=== PATIENT | male | born 1950 | race Caucasian/White ===

== ENCOUNTER 2021-02-24 11:01 | Outpatient (CLI) | payer OTHER, SELFPAY ==
--- NOTE | 2021-02-24 11:13 | USCV_ITS ---
Artem Figueroa Age: 70 Gender: M : 1950 Exam Date: 02/24/2021 11:24 Ordering Phys: Piyush Dotson DO Technologist: Susan Pichardo [place] [facility] [place]: NOISE OVER LEFT CAROTID Risk Factors: Previous Vascular Surgery: Right Brachial BP: / Left Brachial BP: / Right Left Velocity (cm/s) Spectral Plaque Velocity (cm/s) Spectral Plaque Syst/Diast Broadening Syst/Diast Broadening 66.20/ 13.20 Prox CCA 95.30 / 23.50 88.40/ 23.90 Mid CCA 76.50 / 18.50 67.60/ 17.70 Distal CCA 69.20 / 22.10 50.80/ 17.70 Prox ICA 66.30 / 17.30 63.70/ 23.00 Mid ICA 61.00 / 18.80 69.30/ 25.80 Distal ICA 72.00 / 25.20 87.40 ECA 61.50 0.78 ICA/CCA 0.76 Antegrade Vertebral Antegrade 45.10/ 13.70 cm/s 55.10/ 20.90 cm/s Bi Subclavian Bi 114.3 53.90 0 FINDINGS Comparison: none available. No significant elevation of systolic or diastolic velocities. Waveforms are normal. No significant amount of calcified plaque or intimal thickening identified. CONCLUSIONS Bilateral ICA stenosis less than 50%. Minimal carotid atherosclerosis. Dr. Ariadne Edmondson DO (Electronically Signed) Final Date: 24 February 2021 14:08 S
== END 2021-02-24 11:02 | disposition home or self-care (01) ==
PROVIDERS: PCP Emergency Medicine Emergency Medical Services; Visit Provider Emergency Medicine Emergency Medical Services
DX: I65.23 Occlusion and stenosis of bilateral carotid arteries (principal)
CPT/HCPCS: 93880

== ENCOUNTER 2022-12-19 20:00 | Outpatient (CLI) | payer OTHER, SELFPAY | END 2022-12-19 20:01 | disposition home or self-care (01) | LOC: SLEEP 12-20 06:31 | PROVIDERS: PCP Emergency Medicine Emergency Medical Services; Visit Provider Emergency Medicine Emergency Medical Services | DX: G47.33 Obstructive sleep apnea (adult) (pediatric) (principal) | CPT/HCPCS: 95810 ==

== ENCOUNTER 2023-03-06 20:00 | Outpatient (CLI) | payer OTHER, SELFPAY | END 2023-03-06 20:01 | disposition home or self-care (01) | PROVIDERS: PCP Emergency Medicine Emergency Medical Services; Visit Provider Emergency Medicine Emergency Medical Services | DX: G47.33 Obstructive sleep apnea (adult) (pediatric) (principal); R51.9 Headache, unspecified; R06.83 Snoring | CPT/HCPCS: 95811 ==

== ENCOUNTER 2023-03-22 07:42 | Outpatient (CLI) | payer OTHER, SELFPAY ==
[2023-03-22 08:15] VITALS: PULSE 68; RESP 18; O2SAT 96
[2023-03-22 08:20] VITALS: PULSE 71
[2023-03-22] MEDS: albuterol 2.5 mg/3 mL Neb INHALATION (08:23)
== END 2023-03-22 07:43 | disposition home or self-care (01) ==
PROVIDERS: PCP Emergency Medicine Emergency Medical Services; Visit Provider Nurse Practitioner Family
DX: J44.9 Chronic obstructive pulmonary disease, unspecified (principal)
CPT/HCPCS: 94060; J7613

== ENCOUNTER 2023-12-25 08:21 | Outpatient (RCR) | payer OTHER, SELFPAY | END 2024-01-14 23:59 | disposition home or self-care (01) | LOC: SPT 08:21 | PROVIDERS: Visit Provider Family Medicine | DX: M54.2 Cervicalgia (principal) | CPT/HCPCS: 97110; 97140; 97161 ==

== ENCOUNTER 2024-01-15 06:00 | Outpatient (RCR) | payer OTHER, SELFPAY | END 2024-02-14 23:59 | disposition home or self-care (01) | LOC: SPT 06:00 | PROVIDERS: Visit Provider Family Medicine | DX: M54.2 Cervicalgia (principal) | CPT/HCPCS: 97110 ==

== ENCOUNTER 2024-02-15 06:00 | Outpatient (RCR) | payer OTHER, SELFPAY | END 2024-03-07 23:59 | disposition home or self-care (01) | LOC: SPT 06:00 | PROVIDERS: Visit Provider Family Medicine | DX: M54.2 Cervicalgia (principal) | CPT/HCPCS: 97110 ==

== ENCOUNTER 2024-03-24 09:14 | Outpatient (CLI) | payer OTHER, SELFPAY ==
[2024-03-24 10:37] LABS: Estradiol 30.3 pg/mL (7.63-42.6)
[2024-03-25 06:15] LABS: Albumin 4.1 g/dL (3.6-5.1)
[2024-03-25 06:59] LABS: Sex Hormone Binding Globulin 59 nmol/L (22-77); Testosterone Bioavailable 96.5 ng/dL (15.0-150.0); Testosterone Free 51.3 pg/mL (6.0-73.0); Testosterone Total Males IA 610 ng/dL (250-827)
== END 2024-03-24 09:15 | disposition home or self-care (01) ==
LOC: LAB 09:17
PROVIDERS: PCP Family Medicine; Visit Provider Nurse Practitioner Family
DX: R53.82 Chronic fatigue, unspecified (principal)
CPT/HCPCS: 36415; 82040; 82670; 84270; 84403